=== PATIENT | female | born 1970 | race Caucasian/White ===

== ENCOUNTER → 2018-09-15 11:26 | Outpatient (CLI) | payer OTHER, SELFPAY ==
--- NOTE | 2018-09-15 | DI.CT.S_ITS ---
PROCEDURE: CT CERVICAL SPINE WO CON INDICATIONS: MUSCLE STRAIN OF NECK TECHNIQUE: Noncontrast 3 mm thick sections acquired from the skull base to the T4 level. Sagittal and coronal reformats were then constructed. For radiation dose reduction, the following was used: automated exposure control, adjustment of mA and/or kV according to patient size. COMPARISON: None. FINDINGS: Image quality: There is streak artifact associated with the metallic hardware. Bones: No fractures or dislocations. Visualized superior ribs are intact. There is a C5-C6 artificial disc seen, with associated streak artifact. No findings of hardware failure or hardware loosening are seen. The disc spaces otherwise are unremarkable for age, with mild degenerative change. Focal degenerative change with fragmented osteophytes can be seen involving the C1-C2 interspace anteriorly. Soft tissues: Prevertebral soft tissues are normal in thickness. No paravertebral hematomas. No apical pneumothoraces. IMPRESSION: Unremarkable C5-C6 artificial disc, with associated streak artifact. Otherwise, study within normal limits for age. Dictated by: Ramesh Dejesus M.D. on 09/15/2018 at 11:14 Approved by: Ramesh Dejesus M.D. on 09/15/2018 at 11:17
== END ==
PROVIDERS: Visit Provider Orthopaedic Surgery
DX: S16.1XXD Strain of muscle, fascia and tendon at neck level, subsequent encounter (principal)
CPT/HCPCS: 72125